=== PATIENT | male | born 1965 | race Asian ===

== ENCOUNTER → 2024-02-18 14:21 | Outpatient (REF) | payer BC, SELFPAY | LOC: HWRAD 14:21 | PROVIDERS: ATTENDING PHYSICIAN Internal Medicine | DX: R80.9 Proteinuria, unspecified (principal) | CPT/HCPCS: 76700 ==

== ENCOUNTER → 2024-03-17 10:24 | Outpatient (REF) | payer BC, SELFPAY | LOC: HWRAD 10:24 | PROVIDERS: ATTENDING PHYSICIAN Internal Medicine | DX: R07.89 Other chest pain (principal); R76.11 Nonspecific reaction to tuberculin skin test without active tuberculosis | CPT/HCPCS: 71046 ==

== ENCOUNTER → 2024-06-08 11:38 | Outpatient (REF) | payer BC, SELFPAY | LOC: RAD 11:38 | PROVIDERS: ATTENDING PHYSICIAN Internal Medicine | DX: D38.1 Neoplasm of uncertain behavior of trachea, bronchus and lung (principal); R10.10 Upper abdominal pain, unspecified; N02.0 Recurrent and persistent hematuria with minor glomerular abnormality | CPT/HCPCS: 71270; 74178; Q9967 ==